=== PATIENT | male | born 1960 | race Caucasian/White ===

== ENCOUNTER 2018-05-04 15:59 | Emergency (ER) | payer OTHER ==
--- OUTSIDE RECORDS SUMMARY | 2018-05-04 16:23 | XMS REPORT ---
:1960 External Reference #:[id number] Author Organization [facility] Address [address] [place] [address] Phone [phone] Care Team Providers Name Role Phone Tariq Peters M.D. Primary Care Physician Unavailable Payers Type Date Identification Numbers Payment Provider Subscriber Health Maintenance Policy Number: [id number] [facility] Jaylen Ricketts Organization (HMO) PayID: [id number] [address] [address] [place] [address] Problems Date Description Provider Status Onset: 02/03/2015 Impacted giovana Abreu MD Active Family History Date Family Member(s) Problem(s) Comments Paternal Grandfather Heart Disease Paternal Grandmother Heart Disease Social History Type Date Description Comments Occupation [employer] Cigarette Use Never Smoked Cigarettes Cigars has never smoked cigars Pipe has never smoked a pipe Smokeless Tobacco has never used smokeless tobacco ETOH Use does not drink alcohol Smoking Patient has never smoked Allergies, Adverse Reactions, Alerts Date Description Reaction Status Severity Comments 02/15/2005 Aspirin active 08/16/2005 Penicillin active Medications Medication Date Status Form Strength Qnty SIG Indications Ordering Provider Tylenol 01/23/ Active 325mg prn 2005 Tariq Cruz Zoloft 08/15/ Active Tablets ?mg once 2004 daily Tariq Cruz Prilosec / Active Capsules 40mg 60caps Once PO H61.23 Dar, DR amaris Potter M.D. Levothyroxine / Active Tablets 75mcg Take One Unknown Sodium 0000 Tablet By Mouth Every Day Fexofenadine HCL / Active Tablets 180mg Take One Unknown 0000 Tablet By Mouth Every Day Sertraline HCL / Active Tablets 100mg Take Unknown 0000 Three Tablets By Mouth Every Morning Pravastatin / Active Tablets 20mg Darlow, Sodium 0000 Tariq Cruz Mometasone 09/18/ Hx Solution 0.1% 45gm apply to 380.4 Dainel N. Furoate 2011 - both ears Strominger 02/19/ bid Anthony lennon 2013 ear Cimetidine 200 / Hx Unknown 0000 - 2017 Omeprazole / Hx Unknown 0000 - 2013 Immunizations CPT Code Status Date Vaccine Lot # [id number] Given Unknown Influenza Virus Vaccine, 3 Years Of Age And Above, Intramuscular 57511 Refused 09/16/2015 Pneumococcal Vaccine 2Yrs Or Older Vital Signs Date Vital Result Comment 04/25/2018 Weight 198.00 lb Weight in kg's 89.813 Height 70 inches 5'10" Height in cm's 177.8 cm BMI (Body Mass Index) 28.4 kg/m2 04/04/2018 Weight 198.00 lb Weight in kg's 89.813 Height 70 inches 5'10" Height in cm's 177.8 cm BMI (Body Mass Index) 28.4 kg/m2 10/04/2017 Respiratory Rate 17 /min Weight 200.00 lb Weight in kg's 90.720 Height 70 inches 5'10" Height in cm's 177.8 cm BMI (Body Mass Index) 28.7 kg/m2 09/16/2015 BP Systolic 131 mmHg BP Diastolic 75 mmHg Heart Rate 65 /min Respiratory Rate 17 /min Weight 200.00 lb Weight in kg's 90.720 Height 70 inches 5'10" Height in cm's 177.8 cm BMI (Body Mass Index) 28.7 kg/m2 03/18/2015 BP Systolic 127 mmHg BP Diastolic 83 mmHg Heart Rate 72 /min Respiratory Rate 17 /min Weight 200.00 lb Weight in kg's 90.720 Height 70 inches 5'10" Height in cm's 177.8 cm BMI (Body Mass Index) 28.7 kg/m2 09/17/2014 BP Systolic 143 mmHg BP Diastolic 84 mmHg Heart Rate 67 /min Respiratory Rate 17 /min Weight 175.00 lb Weight in kg's 79.380 Height 68 inches 5'8" Height in cm's 172.7 cm BMI (Body Mass Index) 26.6 kg/m2 03/11/2014 BP Systolic 141 mmHg BP Diastolic 86 mmHg Heart Rate 88 /min Respiratory Rate 16 /min Weight 175.00 lb Weight in kg's 79.380 Height 68 inches 5'8" Height in cm's 172.7 cm BMI (Body Mass Index) 26.6 kg/m2 08/21/2013 Respiratory Rate 16 /min Weight 177.00 lb Weight in kg's 80.287 Height 68 inches 5'8" Height in cm's 172.7 cm BMI (Body Mass Index) 26.9 kg/m2 02/19/2013 BP Systolic 124 mmHg BP Diastolic 78 mmHg Heart Rate 70 /min Respiratory Rate 16 /min Weight 177.00 lb Weight in kg's 80.287 Height 68 inches 5'8" Height in cm's 172.7 cm BMI (Body Mass Index) 26.9 kg/m2 09/06/2011 BP Systolic 132 mmHg BP Diastolic 73 mmHg Heart Rate 72 /min Respiratory Rate 16 /min Weight 185.00 lb Weight in kg's 83.916 Height 68 inches 5'8" Height in cm's 172.7 cm BMI (Body Mass Index) 28.1 kg/m2 03/31/2009 Heart Rate 80 /min Respiratory Rate 18 /min Weight 210.00 lb Weight in kg's 95.256 08/16/2005 BP Systolic 128 mmHg BP Diastolic 86 mmHg Heart Rate 68 /min Respiratory Rate 16 /min Results Test Date Test Result H/L Range Note Laboratory test finding 04/25/2018 Surgical Pathology <pending> Procedures Date CPT Code Description Status 04/25/2018 75712 Exc Mal Les 1.1-2.0CM Scalp/Neck Completed 04/04/2018 89281 Removal Wax Impaction Completed 10/04/2017 79751 Removal Wax Impaction Completed 03/29/2017 40349 Removal Wax Impaction Completed 09/27/2016 14875 Removal Wax Impaction Completed 03/22/2016 40442 Removal Wax Impaction Completed 09/16/2015 79255 Removal Wax Impaction Completed 03/18/2015 28843 Removal Wax Impaction Completed 09/17/2014 19324 Removal Wax Impaction Completed 03/11/2014 87678 Removal Wax Impaction Completed 02/19/2013 24147 Removal Wax Impaction Completed 09/18/2012 27213 Binocular Microscopy Completed 05/22/2012 40713 Removal Wax Impaction Completed 01/10/2012 00991 Removal Wax Impaction Completed 09/06/2011 17252 Removal Wax Impaction Completed 05/04/2011 62039 Removal Wax Impaction Completed 03/28/2010 21274 Removal Wax Impaction Completed 09/29/2009 14260 Removal Wax Impaction Completed 03/31/2009 43612 Removal Wax Impaction Completed 01/24/2006 37001 Binocular Microscopy Completed 01/24/2006 24968 Removal Wax Impaction Completed 02/15/2005 88454 Removal Wax Impaction Completed 08/15/2004 34937 Removal Wax Impaction Completed 02/10/2004 62530 Removal Wax Impaction Completed Encounters Type Date Location Provider CPT E/M Dx Office Visit 08/21/2013 2:15p [place],After 11/26/07 [place] [address] 380.4 Office Visit 09/18/2012 11:30a [place],After 11/26/07 [place] [address] 380.4 380.22 Office Visit 08/16/2005 11:15a [place],After 11/26/07 [place] [address] 380.4 Plan of Care Future Appointment(s):05/02/2018 4:00 pm - Satnam Abreu MD at [place], After 11/26/810 2:15 pm - Satnam Abreu MD at [place],After 11/26/804 - Satnam Abreu, MDC44.40 Unspecified malignant neoplasm of skin of scalp and neck
--- OUTSIDE RECORDS SUMMARY | 2018-05-04 16:23 | XMS REPORT ---
:1960 External Reference #:[id number] Author Organization [facility] Address [address] [place] [address] Phone [phone] Care Team Providers Name Role Phone Tariq Peters M.D. Primary Care Physician Unavailable Payers Type Date Identification Numbers Payment Provider Subscriber Health Maintenance Policy Number: [id number] [facility] Marcus Donnelly Organization (HMO) PayID: [id number] [address] [address] [place] [address] Problems Date Description Provider Status Onset: 02/03/2015 [...] Three Tablets By Mouth Every Morning Pravastatin 00/ Active Tablets 20mg Darlow, Sodium 0000 Tariq Cruz Mometasone 09/18/ Hx Solution 0.1% 45gm apply to 380.4 Daniel N. Furoate 2011 - both ears Strominger 02/19/ bid Anthony lennon 2013 ear Cimetidine 200 / Hx Unknown 0000 - 2017 Omeprazole / Hx Unknown 0000 - 2013 Immunizations CPT Code Status Date Vaccine Lot # [id number] Given Unknown Influenza Virus Vaccine, 3 Years Of Age And Above, Intramuscular 69965 Refused 09/16/2015 Pneumococcal Vaccine 2Yrs Or Older Vital Signs Date Vital Result Comment 05/02/2018 Weight 198.00 lb Weight in kg's 89.813 Height 70 inches 5'10" Height in cm's 177.8 cm BMI (Body Mass Index) 28.4 kg/m2 04/25/2018 Weight 198.00 lb Weight in kg's [...] Test Result H/L Range Note Laboratory test 04/25/2018 Surgical Pathology SEE RESULT BELOW 1 finding 1 SEE RESULT BELOW Name: MARCUS DONNELLY : [address]: Satnam Abreu MD Acct: [id number] Unit: [id number] AGE: 57 Location: [facility] Re04/25/18 SEX: M Status: REG REF SPEC: [id number] [place]: 04/25/18-[address] [facility] [address]: Satnam Abreu MD REQ: [id number] RECD: 04/26/18 STATUS: SOUT _ ORDERED: LEVEL 4 COMMENTS: [id number] FINAL DIAGNOSIS Skin, left posterior neck, excision: -- Basal cell carcinoma, nodular pattern with excoriation. -- Deep, tip and lateral margins of resection are clear. PRE-OPERATIVE DIAGNOSIS Left side neck lesion, long stitch lateral and short stitch superior GROSS DESCRIPTION The specimen is received in formalin labeled, Left Posterior Neck Skin, and consists of a 1.8 x 1.2 cm gaytan-brown wrinkled hairbearing skin ellipse excised to a maximum depth of 0.2 cm with a central 0.4 x 0.4 cm gaytan-ashby eroded lesion. There are two attached sutures which as per the accompanying requisition are designated as follows: long stitch lateral and short stitch superior. The specimen is inked as follows: superior half blue, inferior half black and lateral tip green, serially sectioned from lateral to medial and submitted entirely in cassettes A through C to include tips in cassette A. Signed by and Reported on: Marko Hernandez MD 03/13 1148 END OF REPORT DEPARTMENT OF PATHOLOGY, [address] [place] [address] Marko Hernandez M.D. Director [facility] # [id number] Procedures Date CPT Code Description Status 04/25/2018 02917 Exc Mal Les 1.1-2.0CM Scalp/Neck Completed 04/04/2018 56407 Removal Wax Impaction Completed 10/04/2017 45610 Removal Wax Impaction Completed 03/29/2017 41225 Removal Wax Impaction Completed 09/27/2016 49424 Removal Wax Impaction Completed 03/22/2016 10389 Removal Wax Impaction Completed 09/16/2015 28050 Removal Wax Impaction Completed 03/18/2015 17543 Removal Wax Impaction Completed 09/17/2014 18594 Removal Wax Impaction Completed 03/11/2014 18798 Removal Wax Impaction Completed 02/19/2013 61214 Removal Wax Impaction Completed 09/18/2012 69659 Binocular Microscopy Completed 05/22/2012 71668 Removal Wax Impaction Completed 01/10/2012 28939 Removal Wax Impaction Completed 09/06/2011 19519 Removal Wax Impaction Completed 05/04/2011 94424 Removal Wax Impaction Completed 03/28/2010 03561 Removal Wax Impaction Completed 09/29/2009 51633 Removal Wax Impaction Completed 03/31/2009 13061 Removal Wax Impaction Completed 01/24/2006 94610 Binocular Microscopy Completed 01/24/2006 67652 Removal Wax Impaction Completed 02/15/2005 57702 Removal Wax Impaction Completed 08/15/2004 49978 Removal Wax Impaction Completed 02/10/2004 23271 Removal Wax Impaction Completed Encounters Type Date Location Provider CPT E/M Dx Office Visit 08/21/2013 2:15p [place],After 11/26/07 [place]ón [place] [address] 380.4 Office Visit 09/18/2012 11:30a [place],After 11/26/07 [place] [address] 380.4 380.22 Office Visit 08/16/2005 11:15a [place],After 11/26/07 [place] [address] 380.4 Plan of Care Future Appointment(s):10/10/2018 2:15 pm - Satnam Abreu MD at [place], After 11/26/805 - Satnam Abreu, MDC44.41 Basal cell carcinoma of skin of scalp and neck
== END 2018-05-04 16:00 | disposition left against medical advice (07) ==
LOC: UCEAST 15:59
DX: S11.91XD Laceration without foreign body of unspecified part of neck, subsequent encounter (principal); X58.XXXD Exposure to other specified factors, subsequent encounter; Z53.21 Procedure and treatment not carried out due to patient leaving prior to being seen by health care provider

== ENCOUNTER 2019-10-27 16:29 | Emergency (ER) | payer OTHER ==
[2019-10-27 16:39] VITALS: BP 138/72
--- NOTE | 2019-10-27 17:06 | UC ---
Throat Pain/Nasal Rayo HPI - HPI Summary HPI Summary: 58 yo with sore throat and nasal congestion x 10 days. He comes for assessment today because of persistent chest congestion and cough, but without associated fever. No headache. No shortness of breath. He has a learning delay and OCD, accompanied by his brother. - History of Current Complaint Chief Complaint: UCGeneralIllness Stated Complaint: COUGH, CONGESTION Time Seen by Provider: 10/27/19 16:55 Hx Obtained From: Patient Onset/Duration: Gradual Onset, Lasting Days - 10 Pain Intensity: 0 Cough: Nonproductive Associated Signs & Symptoms: Positive: Negative Related History: Seasonal Allergies - Allergies/Home Medications Allergies/Adverse Reactions: Allergies Allergy/AdvReac Type Severity Reaction Status Date / Time aspirin Allergy Swelling Verified 10/27/19 16:40 bee venom protein (honey bee) Allergy Hives Verified 10/27/19 16:40 Penicillins Allergy Swelling Verified 10/27/19 16:40 shellfish derived Allergy Hives Verified 10/27/19 16:40 PMH/Surg Hx/FS Hx/Imm Hx Previously Healthy: Yes Endocrine History: Hypothyroidism Psychological History: Other - OCD - Surgical History Surgical History: None - Family History Known Family History: Positive: Cardiac Disease - mother [place], Other - father post stroke. - Social History Occupation: Employed Part-time Lives: Alone Alcohol Use: None Substance Use Type: None Smoking Status (MU): Never Smoked Tobacco Review of Systems All Other Systems Reviewed And Are Negative: Yes Constitutional: Positive: Negative Skin: Positive: Negative ENT: Positive: Sore Throat - resolved Respiratory: Positive: Cough. Negative: Shortness Of Breath Cardiovascular: Negative: Palpitations Gastrointestinal: Positive: Negative Genitourinary: Positive: Negative Motor: Positive: Negative Neurovascular: Positive: Negative Musculoskeletal: Positive: Negative Neurological: Positive: Negative Psychological: Positive: Negative Is Patient Immunocompromised?: No Physical Exam Triage Information Reviewed: Yes Appearance: Well-Appearing - occasional congested cough, No Pain Distress Vital Signs: Initial Vital Signs Temp 98.8 F 10/27/19 16:36 Pulse 82 10/27/19 16:36 Resp 16 10/27/19 16:36 BP 138/72 10/27/19 16:36 Pulse Ox 98 10/27/19 16:36 Eye Exam: Normal ENT: Positive: Pharynx normal, TMs normal Neck: Positive: Supple, Nontender, No Lymphadenopathy Respiratory: Positive: Lungs clear, Normal breath sounds Cardiovascular: Positive: RRR, No Murmur Musculoskeletal Exam: Normal Neurological Exam: Normal Psychological Exam: Normal Skin Exam: Normal Throat Pain/Nasal Course/Dx - Course Course Of Treatment: Continued symptomatic treatment of viral respiratory illness. - Differential Dx/Diagnosis Differential Diagnosis/HQI/PQRI: Influenza, Pharyngitis, Sinusitis, Tonsillitis , URI Provider Diagnosis: URI (upper respiratory infection) Discharge ED - Sign-Out/Discharge Documenting (check all that apply): Patient Departure All imaging exams completed and their final reports reviewed: No Studies - Discharge Plan Condition: Good Disposition: HOME Patient Education Materials: Upper Respiratory Infection (ED) Referrals: Tariq Peters MD [Primary Care Provider] - Additional Instructions: Your symptoms are related to a viral respiratory illness, and you will likely be congested for another few days. Continue use of mucinex to keep sputum loose and easy to cough up. Off work tomorrow, but you will most likely be able to return on Sunday. - Billing Disposition and Condition Condition: GOOD Disposition: Home
--- OUTSIDE RECORDS SUMMARY | 2019-10-28 16:28 | XMS REPORT | Continuity of Care Document ---
:1960 External Reference #:[id number] Author Name Satnam Abreu MD Address [address] [place] [address] Care Team Providers Name Role Phone Tariq Peters M.D. - Family Medicine Care Team Information Grab Jack Man [phone] Problems Active Problems Provider Date Impacted cerumen Satnam Abreu MD Onset: 02/03/2015 Social History Type Date Description Comments Sex Unknown Tobacco Use Start: Unknown Never Smoked Cigarettes Tobacco Use Start: Unknown has never smoked cigars Tobacco Use Start: Unknown has never smoked a pipe Smokeless Tobacco has never used smokeless tobacco ETOH Use does not drink alcohol Tobacco Use Start: Unknown Patient has never smoked Allergies, Adverse Reactions, Alerts Active Allergies Reaction Severity Comments Date Aspirin 02/15/2005 Penicillin 08/16/2005 Medications Active Medications SIG Qnty Indications Ordering Provider Date Tylenol prn Tariq Peters 01/23/2006 325mg MCassie Prilosec Once PO bid 60caps H61.23 Tariq Peters 40mg Capsules DR Cruz Levothyroxine Sodium Take One Tablet Unknown By Mouth Every 75mcg Tablets Day Fexofenadine HCL Take One Tablet Unknown 180mg By Mouth Every Tablets Day Sertraline HCL Take Three Unknown 100mg Tablets By Mouth Tablets Every Morning Pravastatin Sodium Tariq Peters 20mg MJaquanDJaquan Tablets Immunizations CPT Code Status Date Vaccine Lot # [id number] Given Unknown Influenza Virus Vaccine, 3 Years Of Age And Above, Intramuscular 51234 Refused 09/16/2015 Pneumococcal Vaccine 2Yrs Or Older Vital Signs Date Vital Result Comment 10/09/2019 3:29pm Weight 197.00 lb Weight 89.359 kg Height 70 inches 5'10" Height in cm's 177.8 cm BMI (Body Mass Index) 28.3 kg/m2 04/02/2019 1:32pm Weight 195.00 lb Weight 88.452 kg Height 70 inches 5'10" Height in cm's 177.8 cm BMI (Body Mass Index) 28.0 kg/m2 Results Description No Information Available Procedures Date Code Description Status 10/09/2019 19528 Removal Wax Impaction Completed Medical Devices Description No Information Available Encounters Description No Information Available Assessments Date Code Description Provider 10/09/2019 H61.23 Impacted cerumen, bilateral Satnam Abreu MD 10/01/2019 H61.23 Impacted cerumen, bilateral CAMILA Huang-C Plan of Treatment Future Appointment(s):04/08/2020 3:30 pm - Satnam Abreu MD at [place], After 11/26/810 - CAMILA Huang-[id number] Impacted cerumen, bilateral Functional Status Description No Information Available Mental Status Description No Information Available Referrals Description No Information Available
== END 2019-10-27 17:34 | disposition home or self-care (01) ==
LOC: UCEAST 16:29
DX: J06.9 Acute upper respiratory infection, unspecified (principal); Z88.6 Allergy status to analgesic agent; Z91.030 Bee allergy status; Z88.0 Allergy status to penicillin; Z91.013 Allergy to seafood
CPT/HCPCS: 99211; G0463